=== PATIENT | male | born 1935 | race Caucasian/White ===

== ENCOUNTER 2017-05-28 14:53 | Emergency (ER) | payer MEDICARE, OTHER ==
[2017-05-28 16:36] VITALS: BP 150/63
--- NOTE | 2017-05-28 16:37 | ED ---
Respiratory - HPI Summary HPI Summary: 81 yr old male with the complaint of chest tightness and tightness in his throat. Onset over a day ago. He reports having sneezing and mild cough as well. He has not had SOB, dizziness. No other complaints. The patient denies prior cardiac history of heart attack. - History of Current Complaint Chief Complaint: UCRespiratory Stated Complaint: UPPER RESPIRATORY COMPLAINT Time Seen by Provider: 05/28/17 16:23 - Allergy/Home Medications Allergies/Adverse Reactions: Allergies Allergy/AdvReac Type Severity Reaction Status Date / Time latex Allergy Rash Verified 05/28/17 16:06 Home Medications: Home Medications Aspirin EC Low Dose* [Ecotrin EC Low Dose 81 MG*] 1 tab DAILY 05/28/17 [History Confirmed 05/28/17] Cyanocobalamin TAB* [Vitamin B12 TAB*] 1 tab DAILY 05/28/17 [History Confirmed 05/28/17] Divalproex ER TAB(*) [Depakote ER TAB(*)] 1,000 mg PO DAILY 05/28/17 [History Confirmed 05/28/17] Furosemide TAB* [Lasix TAB*] 40 mg PO DAILY 05/28/17 [History Confirmed 05/28/17 ] Insulin GLARGINE(*) [Lantus(*)] 6 units QPM 05/28/17 [History Confirmed 05/28/17 ] Levothyroxine TAB* [Synthroid TAB*] 112 mcg PO 0800 05/28/17 [History Confirmed 05/28/17] Metformin SUSP (NF)* [Riomet SUSP (NF)*] 1,000 mg BID 05/28/17 [History Confirmed 05/28/17] Potassium Chlor TAB* [Potassium Chlor TAB 20 MEQ*] 20 meq DAILY 05/28/17 [ History Confirmed 05/28/17] Primidone TAB(*) [Mysoline TAB(*)] 250 mg PO TID 05/28/17 [History Confirmed 04/02] Quetiapine Fumarate [Seroquel Xr] 100 - 200 mg PO BEDTIME 05/28/17 [History Confirmed 05/28/17] PMH/Surg Hx/FS Hx/Imm Hx Respiratory History: Reports: Hx Chronic Obstructive Pulmonary Disease (COPD) - Cancer History Hx Chemotherapy: No Hx Radiation Therapy: No Infectious Disease History: Denies: Traveled Outside the [place] in Last 30 Days - Family History Known Family History: Positive: None - Social History Occupation: Retired Lives: With Family Review of Systems Positive: Chest Pain Positive: Cough All Other Systems Reviewed And Are Negative: Yes Physical Exam Triage Information Reviewed: Yes Vital Signs Reviewed: Yes Appearance: Positive: Well-Appearing, No Pain Distress Skin: Positive: Warm, Skin Color Reflects Adequate Perfusion Eyes: Positive: EOMI ENT: Positive: Nasal congestion Neck: Positive: Nontender Respiratory/Lung Sounds: Positive: Clear to Auscultation, Breath Sounds Present Cardiovascular: Positive: RRR. Negative: Murmur Abdomen Description: Positive: Nontender Musculoskeletal: Positive: Strength/ROM Intact Neurological: Positive: Sensory/Motor Intact, Alert, Oriented to Person Place, Time, CN Intact II-III Psychiatric: Positive: Normal - Cathryn Coma Scale Best Eye Response: 4 - Spontaneous Best Motor Response: 6 - Obeys Commands Best Verbal Response: 5 - Oriented Coma Scale Total: 15 Diagnostics - Laboratory Lab Statement: Any lab studies that have been ordered have been reviewed, and results considered in the medical decision making process. - EKG 05/28/2017 Cardiac Rate: NL EKG Rhythm: Sinus Rhythm ST Segment: Normal Ectopy: None Disposition - Course Course Of Treatment: 81 yr old with chest pain/tightness goes into his neck. EKG with RBBB. I advise he go to the ER by ambulance and they refused ambulance. Sign out AMA with chest pain, possible , disability, heart attack, blood clot, sepsis. - Diagnoses Provider Diagnoses: Chest pain, Hypertension Discharge - Discharge Plan Condition: Good Disposition: AGAINST MEDICAL ADVICE Referrals: Ricardo Saenz MD [Primary Care Provider] -
== END 2017-05-28 16:48 | disposition left against medical advice (07) ==
LOC: UCCORT 14:53
DX: R07.9 Chest pain, unspecified (principal); I10 Essential (primary) hypertension; J44.9 Chronic obstructive pulmonary disease, unspecified
CPT/HCPCS: 93005; 99212; G0463

== ENCOUNTER 2017-10-09 13:00 | Emergency (ER) | payer MEDICARE, OTHER ==
[2017-10-09 14:42] VITALS: BP 125/47
--- NOTE | 2017-10-09 14:54 | UC ---
General HPI - HPI Summary HPI Summary: Patient presents accompanied by his daughter. He is complaining of abrasions to both knees. States that he was walking and looking at the [place] at the same time causing him to trip on an uneven sidewalk. States that he fell and landed on both his knees. He did not hit his head. he denies any neck or back pain. He is complaining of abrasions to both knees. He denies any other injuries and offers no other complaints. Daughter at the bedside states that she cleaned the areas with some alcohol and Betadine and applied some Band-Aids. Last tetanus shot is unknown. Occured INSTITUTIONAL CUSTODIAN. Pt did get self up and walked home. - History of Current Complaint Hx Obtained From: Patient, Family/Bed And Breakfast Operator Onset/Duration: Sudden Onset Timing: Constant Pain Intensity: 6 Aggravating: nothing Alleviating: nothing Associated Signs & Symptoms: Negative: Headache, Syncope <Perla Gore - Last Filed: 10/09/17 14:48> <Calos Traore - Last Filed: 10/09/17 20:01> - History of Current Complaint Chief Complaint: UCLowerExtremity Stated Complaint: BILATERAL KNEE COMPLAINT/FALL Time Seen by Provider: 10/09/17 14:47 - Allergy/Home Medications Allergies/Adverse Reactions: Allergies Allergy/AdvReac Type Severity Reaction Status Date / Time latex Allergy Rash Verified 10/09/17 14:24 Home Medications: Home Medications Cholecalciferol TAB* [Vitamin D TAB*] 1,000 unit PO DAILY 10/09/17 [History Confirmed 10/09/17] Flash Glucose Sensor [Freestyle Abril Sensor] 1 each MC 10/09/17 [History] Insulin LISPRO* [HumaLOG*] units SUBCUT BID AC PRN 10/09/17 [History] Levothyroxine TAB* [Synthroid TAB*] 125 mcg PO DAILY 10/09/17 [History Confirmed 10/09/17] Multivitamin [Multivitamins] 1 cap PO 10/09/17 [History] Olean-3 Fatty Acids/Fish Oil [Fish Oil 1,000 mg Capsule] 1 each PO 10/09/17 [ History] metFORMIN* [Glucophage 1000 MG TAB *] 1,000 mg PO BID 10/09/17 [History Confirmed 10/09/17] PMH/Surg Hx/FS Hx/Imm Hx Endocrine History: Diabetes, Thyroid Disease Psychological History: Bipolar Disorder - Surgical History Surgical History: Yes Surgery Procedure, Year, and Place: Cystoscopies. Spinal fusion. 5 hernia repairs w/ mesh. Cataract sx. TONSILLECTOMY - Family History Known Family History: Positive: None - Social History Occupation: Retired Alcohol Use: None Substance Use Type: None Substance Use Comment - Amount & Last Used: unk Smoking Status (MU): Former Smoker When Did the Patient Quit Smoking/Using Tobacco: 1991 - Immunization History Most Recent Tetanus Shot: UNKNOW Hx Tetanus, Diphtheria Vaccination: No - unknown Vaccination Up to Date: Yes <Perla Gore - Last Filed: 10/09/17 14:48> Review of Systems Constitutional: Negative Skin: Other - abrasions to both knees Eyes: Negative ENT: Negative Respiratory: Negative Cardiovascular: Negative Gastrointestinal: Negative Genitourinary: Negative Motor: Negative Neurovascular: Negative Musculoskeletal: Negative Neurological: Negative Psychological: Negative All Other Systems Reviewed And Are Negative: Yes <Perla Gore - Last Filed: 10/09/17 14:48> Physical Exam Triage Information Reviewed: Yes Appearance: Well-Appearing Vital Signs: Initial Vital Signs Temp 98 F 10/09/17 14:31 Pulse 57 10/09/17 14:31 Resp 16 10/09/17 14:31 BP 125/47 10/09/17 14:31 Pulse Ox 99 10/09/17 14:31 Vital Signs Reviewed: Yes Eyes: Positive: Conjunctiva Clear ENT: Positive: Normal ENT inspection Neck: Positive: Supple, Nontender, No Lymphadenopathy Respiratory: Positive: Lungs clear, Normal breath sounds Cardiovascular: Positive: RRR, No Murmur Abdomen Description: Positive: Nontender, No Organomegaly, Soft Bowel Sounds: Positive: Present Musculoskeletal: Positive: Other: - Head, chest, pelvis and both upper extremities are atraumatic. Bilateral lower extremity exam: Hips lower legs ankles and feet are atraumatic. Both anterior knees have abrasions with slight soiling. The areas are slightly swollen and minimally tender with no crepitation or instability both knees have full active range of motion. Both lower extremities have gross sensory vascular and motor function. Neurological: Positive: Alert Psychological: Positive: Normal Response To Family, Age Appropriate Behavior Skin Exam: Normal <Perla Gore Last Filed: 10/09/17 14:48> Vital Signs: Initial Vital Signs Temp 98 F 10/09/17 14:31 Pulse 57 10/09/17 14:31 Resp 16 10/09/17 14:31 BP 125/47 10/09/17 14:31 Pulse Ox 99 10/09/17 14:31 <Calos Traore - Last Filed: 10/09/17 20:01> Diagnostics - Radiology No standard instances Xray Interpretation: No Acute Changes Radiology Interpretation Completed By: Radiologist - both knees. no fx. OA(see report) <Perla Gore - Last Filed: 10/09/17 14:48> Course/Dx - Course Course Of Treatment: no fx's - Differential Dx - Multi-Symptom Provider Diagnoses: Abrasions to both knees <Perla Gore - Last Filed: 10/09/17 14:48> Discharge - Sign-Out/Discharge Documenting (check all that apply): Discharge/Admit/Transfer - Billing Disposition and Condition Condition: STABLE Disposition: Home <Perla Gore - Last Filed: 10/09/17 14:48> - Billing Disposition and Condition Condition: STABLE Disposition: Home <Calos Traore - Last Filed: 10/09/17 20:01> - Discharge Plan Condition: Stable Disposition: HOME Patient Education Materials: Abrasion (ED) Referrals: Ricardo Saenz MD [Primary Care Provider] - 7 Days Additional Instructions: Per institutional requirements, I have reviewed the chart, however, I was not consulted specifically or made aware of this patient by the above midlevel provider. I did not personally evaluate, interact with , or disposition this patient.
[2017-10-09] MEDS ORDERED: Tetan/Diph/Pertus SYR(Tdap)* 0.5 ML SYR(BOOSTRIX) use SYR IM ONE (15:02)
--- NOTE | 2017-10-09 15:48 | RAD ---
INDICATION: Bilateral knee pain COMPARISON: None TECHNIQUE: AP, lateral, tunnel, and sunrise views were obtained. FINDINGS: There are no acute bony abnormalities about either knee. Bony mineralization is normal for age. There is mild, bilateral, patellofemoral osteoarthritis. The medial lateral joint spaces are preserved. There are vascular calcifications bilaterally. There are no significant joint effusions. IMPRESSION: MINOR AGE-RELATED OSTEOARTHRITIC CHANGE. NO ACUTE FINDINGS.
== END 2017-10-09 16:12 | disposition home or self-care (01) ==
LOC: UCCORT 13:00
DX: S80.212A Abrasion, left knee, initial encounter (principal); S80.211A Abrasion, right knee, initial encounter; W19.XXXA Unspecified fall, initial encounter; Y93.01 Activity, walking, marching and hiking; Y92.9 Unspecified place or not applicable; E11.9 Type 2 diabetes mellitus without complications; Z79.4 Long term (current) use of insulin; Z79.84 Long term (current) use of oral hypoglycemic drugs; E07.9 Disorder of thyroid, unspecified; Z87.891 Personal history of nicotine dependence
CPT/HCPCS: 90471; 90715; 99203; G0463

== ENCOUNTER 2017-12-03 09:46 | Emergency (ER) | payer MEDICARE, OTHER ==
[2017-12-03 10:09] VITALS: BP 134/46
--- NOTE | 2017-12-03 10:34 | UC ---
Upper Extremity HPI - HPI Summary HPI Summary: Patient states he had a watch with a leather wristband that was very tight on the his left wrist and he noticed swelling on his hand on 11-30-17. He denies chills or fever. States he had a fall in October 09 and landed on knees and left hand but had no tenderness there ever since. - History of Current Complaint Chief Complaint: UCSkin Stated Complaint: LEFT HAND SWELLING Time Seen by Provider: 12/03/17 10:05 Hx Obtained From: Patient, Family/Loan Reviewer ?: No Onset/Duration: Sudden Onset, Lasting Days Severity Initially: Mild Severity Currently: Mild Pain Intensity: 0 Character: Sharp Aggravating Factor(s): Movement Alleviating Factor(s): Nothing Associated Signs And Symptoms: Positive: Negative - Risk Factors DVT Risk Factors: Negative Septic Arthritis Risk Factor: Extremes of Age - Allergies/Home Medications Allergies/Adverse Reactions: Allergies Allergy/AdvReac Type Severity Reaction Status Date / Time latex Allergy Rash Verified 12/03/17 10:09 PMH/Surg Hx/FS Hx/Imm Hx Previously Healthy: Yes Endocrine History: Diabetes, Hypothyroidism Cardiovascular History: Hypertension Psychological History: Bipolar Disorder - Surgical History Surgical History: Yes Surgery Procedure, Year, and Place: Cystoscopies. Spinal fusion. 5 hernia repairs w/ mesh. Cataract sx. TONSILLECTOMY - Family History Known Family History: Positive: None - Social History Alcohol Use: None Substance Use Type: None Substance Use Comment - Amount & Last Used: unk Smoking Status (MU): Former Smoker When Did the Patient Quit Smoking/Using Tobacco: 1991 - Immunization History Most Recent Tetanus Shot: UTD Hx Tetanus, Diphtheria Vaccination: No - unknown Vaccination Up to Date: Yes Review of Systems Constitutional: Negative Skin: Other - soft tissue swelling Eyes: Negative ENT: Negative Respiratory: Negative Cardiovascular: Negative Gastrointestinal: Negative Genitourinary: Negative Motor: Negative Neurovascular: Negative Musculoskeletal: Edema All Other Systems Reviewed And Are Negative: Yes Physical Exam Triage Information Reviewed: Yes Appearance: Well-Appearing, No Pain Distress, Well-Nourished Vital Signs: Initial Vital Signs Temp 97.4 F 12/03/17 09:59 Pulse 52 12/03/17 09:59 Resp 16 12/03/17 09:59 BP 134/46 12/03/17 09:59 Pulse Ox 99 12/03/17 09:59 Vital Signs Reviewed: Yes Eyes: Positive: Conjunctiva Clear ENT: Positive: Hearing grossly normal, Pharynx normal, Uvula midline Neck: Positive: Supple, Nontender, No Lymphadenopathy Respiratory: Positive: Chest non-tender, Lungs clear, Normal breath sounds, No respiratory distress Cardiovascular: Positive: RRR, No Murmur, Pulses Normal, Brisk Capillary Refill Abdomen Description: Positive: Nontender Musculoskeletal: Positive: Strength Intact, ROM Intact, Edema @ - dorsal left hand, non pitting. Ulnar and radial pulses intact, capillary refill brisk. Tender along 5th metacarpal and MP joint. No bruising, no rash Neurological: Positive: Alert, Muscle Tone Normal Psychological: Positive: Normal Response To Family Upper Extremity Course/Dx - Course Course Of Treatment: xray shows DJD, no evidence of fracture or dislocation. SCOTTY compressive bandage applied, sling to be used to elevate hand. - Differential Dx/Diagnosis Provider Diagnoses: Hand osteoarthritis Discharge - Sign-Out/Discharge Documenting (check all that apply): Patient Departure All imaging exams completed and their final reports reviewed: Yes - Discharge Plan Condition: Stable Disposition: HOME Patient Education Materials: Osteoarthritis (ED) Referrals: Ricardo Saenz MD [Primary Care Provider] - - Billing Disposition and Condition Condition: STABLE Disposition: Home
--- NOTE | 2017-12-03 10:49 | RAD ---
Indication: Left hand swelling. 4 views of the left hand demonstrates degenerative changes of the radiocarpal joint as well as the trapezium first metacarpal joint. No fracture is noted. IMPRESSION: Degenerative changes of the radiocarpal joint and first carpal metacarpal joint.
== END 2017-12-03 11:16 | disposition home or self-care (01) ==
LOC: UCCORT 09:46
DX: I10 Essential (primary) hypertension (principal); Z87.891 Personal history of nicotine dependence; E11.9 Type 2 diabetes mellitus without complications; M19.042 Primary osteoarthritis, left hand
CPT/HCPCS: 99213; G0463

== ENCOUNTER 2018-02-17 17:12 | Emergency (ER) | payer MEDICARE, OTHER ==
[2018-02-17 18:34] VITALS: BP 176/54
--- NOTE | 2018-02-17 20:18 | ED ---
Complex/Multi-Sys Presentation - HPI Summary HPI Summary: pt presents for evaluation after he fell. he was taking his daily walk. his daughter is here with the patient. he falls on occasion especially if there is uneven ground as there was today as per pt and daughter. pt denies any loc. he complained of mild right elbow pain and an abrasion to his right knee. he denies bleeding from his nose. this happened around 2pm. he presented several hours later. he states that his elbow started hurting. - History Of Current Complaint Chief Complaint: UCHeadInjury Hx Obtained From: Patient, Family/Cnc Operator Onset/Duration: Sudden Onset Severity Currently: Mild Severity Initially: Mild Associated Signs And Symptoms: Positive: Edema - legs chronic. Negative: Decreased Responsiveness, Confusion, Agitation, Dizziness, Weakness, Cough, Chest Pain, Nausea, Vomiting, Diarrhea, Back Pain, Fever - Allergies/Home Medications Allergies/Adverse Reactions: Allergies Allergy/AdvReac Type Severity Reaction Status Date / Time latex Allergy Rash Verified 02/17/18 18:35 Home Medications: Home Medications Azelastine 0.15% NASAL(NF) [Astepro 0.15% NASAL (NF)] 1 spray NASAL BEDTIME 08/01 [History Confirmed 02/17/18] Iron 65 Mg 1 tab DAILY 02/17/18 [History] Polyethylene Glycol 3350* [Miralax*] 17 gm PO DAILY 02/17/18 [History Confirmed 02/17/18] PMH/Surg Hx/FS Hx/Imm Hx Previously Healthy: Yes Endocrine/Hematology History: Reports: Hx Diabetes - Type 1, Hx Thyroid Disease - Hypo Respiratory History: Reports: Hx Chronic Obstructive Pulmonary Disease (COPD) - Cancer History Cancer Type, 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 Spinal fusion. 5 hernia repairs w/ mesh. Cataract sx. TONSILLECTOMY Infectious Disease History: No Infectious Disease History: Denies: Traveled Outside the [place] in Last 30 Days - Family History Known Family History: Positive: None - Social History Alcohol Use: None Substance Use Type: Reports: None Substance Use Comment - Amount & Last Used: unk Smoking Status (MU): Former Smoker Review of Systems Constitutional: Negative Eyes: Negative Positive: Other - nose pain after fall Respiratory: Negative Gastrointestinal: Negative Genitourinary: Negative Positive: Other - right elbow pain Positive: Other - abrasion Negative: Headache, Syncope, Slurred Speech Psychological: Normal All Other Systems Reviewed And Are Negative: No Physical Exam Triage Information Reviewed: Yes Vital Signs On Initial Exam: Initial Vitals Temp Pulse Resp BP Pulse Ox 97.6 F 51 18 176/54 100 02/17/18 18:27 1118 18:27 02/17/18 18:27 02/17/18 18:27 02/17/18 18:27 Vital Signs Reviewed: Yes Appearance: Positive: Well-Appearing, No Pain Distress, Well-Nourished Skin: Positive: Warm, Dry, Other - abrsion to bridge of nose and to right knee. right knee has a bandaid on it. Head/Face: Positive: Other - abrasion to bridge of nose Eyes: Positive: Normal ENT: Positive: Hearing grossly normal, Pharynx normal, Other - no midface tenderness or deformities. nl bite Neck: Positive: Supple, Nontender Respiratory/Lung Sounds: Positive: Clear to Auscultation, Breath Sounds Present Cardiovascular: Positive: Normal, RRR Abdomen Description: Positive: Nontender, Soft Bowel Sounds: Positive: Present Musculoskeletal: Positive: Normal, Other - full rom of right elbow, slow gait ( daughter states baseline) Neurological: Positive: CN Intact II-III, Other - no facial asymetry. full rom of all extremities and joints Psychiatric: Positive: Other - flat affect AVPU Assessment: Alert Diagnostics - Vital Signs Vital Signs Temp Pulse Resp BP Pulse Ox 02/17/18 18:27 97.6 F 51 18 176/54 100 - Laboratory Lab Statement: Any lab studies that have been ordered have been reviewed, and results considered in the medical decision making process. Complex Multi-Symp Course/Dx Course Of Treatment: xray of right elbow shows a posterior fat fat sign. I discussed with pt and daughter the fact that his exam is not consistent with a fracture. I informed them that this may be from a previous injury. however, I did not have any previous xrays for comparison. I discussed placing a splint and sling. pt and daughter agreed. I encouraged them to f/u pcp and ortho this week. I told the daughter that orthopedic surgery may determine that this is not a new finding and that he can have the splint removed and resume all normal activity. they understood the importance of f/u with ortho. Regarding his facial trauma, I do not see any clinical evidence of fracture. he had no loc. He does not appear concussed. We do not have CT capabilities tonight. I discussed this with the daughter. I do not think that pt requires a CT head, however, I did discuss with the daughter the fact that if he has any new neurologic symptoms, persistent headaches or has difficulty ambulating, he needs to go to an emergency dept for re-evaluation. - Diagnoses Provider Diagnoses: Contusion, Elbow pain, right Discharge - Sign-Out/Discharge Documenting (check all that apply): Patient Departure All imaging exams completed and their final reports reviewed: Yes - Discharge Plan Condition: Stable Disposition: HOME Patient Education Materials: Elbow Sprain (ED), Abrasion (ED) Referrals: Ricardo Saenz MD [Primary Care Provider] - Additional Instructions: Please follow up with your primary care physician and your orthopedic surgeon. return if worse or any new symptoms. Take tyelnol for pain. Keep the splint dry. wear the sling as instructed. your xray showed a "posterior fat pad sign " which is concerning for a fracture of your elbow. If you start having a headache or are having difficulty walking or any new symptoms, please go to the nearest emergency dept for evaluation. - Billing Disposition and Condition Condition: STABLE Disposition: Home
== END 2018-02-17 20:30 | disposition home or self-care (01) ==
LOC: UCCORT 17:12
DX: S50.01XA Contusion of right elbow, initial encounter (principal); M25.521 Pain in right elbow; E10.9 Type 1 diabetes mellitus without complications; J44.9 Chronic obstructive pulmonary disease, unspecified; Z91.040 Latex allergy status; Z87.891 Personal history of nicotine dependence
CPT/HCPCS: 99211; G0463

== ENCOUNTER 2018-06-09 13:24 | Emergency (ER) | payer MEDICARE, OTHER ==
[2018-06-09 14:16] VITALS: BP 115/41
--- NOTE | 2018-06-09 15:00 | UC ---
Skin Complaint HPI - HPI Summary HPI Summary: Has had increased LE edema x 3+ weeks L>R with pruritic erythematous rash on Left initially, now with right. Some tingling. No fevers or chills. Has been eating salted peanuts. - History of Current Complaint Chief Complaint: UCSkin Time Seen by Provider: 06/09/18 14:34 Stated Complaint: LEG CONCERN (EDEMA) Hx Obtained From: Patient Onset/Duration: Gradual Onset, Lasting Weeks - 3, Still Present Timing: Constant Onset Severity: Moderate Current Severity: Severe Pain Intensity: 7 Location: Discrete - Bilateral lower legs Character: Swelling, Pruritus, Redness Aggravating Factor(s): Touch Alleviating Factor(s): Nothing Associated Signs & Symptoms: Positive: Rash. Negative: Numbness, Diaphoresis, Difficulty Breathing, Fever, Chills, Chest Pain, Drainage, Bruising, Tenderness , Red Streaks Related History: Use of Diuretics - Allergy/Home Medications Allergies/Adverse Reactions: Allergies Allergy/AdvReac Type Severity Reaction Status Date / Time latex Allergy Rash Verified 06/09/18 14:01 Home Medications: Home Medications Furosemide TAB* [Lasix TAB*] 20 mg PO DAILY 06/09/18 [History Confirmed 06/09/18 ] Hydrocortisone 0.5% CM(NF) [Hydrocortisone 0.5% CREAM(NF)] 1 applic .SEE ORDER DAILY 06/09/18 [History Confirmed 06/09/18] Loratadine/Pseudoephedrine [Claritin-D 24 Hour Tablet] 1 tab PO DAILY 06/09/18 [ History Confirmed 06/09/18] Potassium Chlor TAB* [Klor Con ER TAB 10 MEQ*] 10 meq PO DAILY 06/09/18 [ History Confirmed 06/09/18] PMH/Surg Hx/FS Hx/Imm Hx Endocrine History: Diabetes, Hypothyroidism, Dyslipidemia Cardiovascular History: Hypertension Psychological History: Bipolar Disorder - Surgical History Surgical History: Yes Surgery Procedure, Year, and Place: Cystoscopies. Spinal fusion. 5 hernia repairs w/ mesh. Cataract sx. TONSILLECTOMY. dental - Family History Known Family History: Positive: Diabetes - Social History Occupation: Retired Lives: Alone Alcohol Use: None Substance Use Type: None Substance Use Comment - Amount & Last Used: unk Smoking Status (MU): Former Smoker When Did the Patient Quit Smoking/Using Tobacco: 1991 - Immunization History Most Recent Tetanus Shot: UTD Hx Tetanus, Diphtheria Vaccination: No - unknown Vaccination Up to Date: Yes Review of Systems All Other Systems Reviewed And Are Negative: Yes Skin: Positive: Rash Musculoskeletal: Positive: Edema Physical Exam Triage Information Reviewed: Yes Appearance: Well-Appearing, No Pain Distress, Well-Nourished Vital Signs: Initial Vital Signs Temp 98.5 F 06/09/18 14:06 Pulse 85 06/09/18 14:06 Resp 18 06/09/18 14:06 BP 115/41 06/09/18 14:06 Pulse Ox 98 06/09/18 14:06 Vital Signs Reviewed: Yes Eyes: Positive: Conjunctiva Inflamed Neck exam: Normal Respiratory Exam: Normal Cardiovascular Exam: Normal Musculoskeletal: Positive: Edema @ - 3-4+ on the left LE 3+ right LE Neurological Exam: Normal Psychological Exam: Normal Skin: Positive: Rashes - erythematous papular rash left LE and much less right LE Images Front/Back of Body, Lg (Pierce): 1 - Rash anterolateral lower valladares 2 - line of papules Course/Dx - Differential Diagnoses - Skin Complaint Differential Diagnoses: Cellulitis, Drug Rash, Impetigo, Varicella Zoster - Diagnoses Provider Diagnosis: Venous stasis dermatitis of both lower extremities Discharge - Sign-Out/Discharge Documenting (check all that apply): Patient Departure All imaging exams completed and their final reports reviewed: No Studies - Discharge Plan Condition: Stable Disposition: HOME Prescriptions: Betamethasone Dip 0.05% ON(NF) [Betamethasone Dipr 0.05% OINT(NF)] 1 applic TOPICAL BID 30 Days #45 gm Patient Education Materials: Stasis Dermatitis (ED) Referrals: Ricardo Saenz MD [Primary Care Provider] - Additional Instructions: 1. Take an extra 40mg lasix today. 2. Use the SCOTTY wrap to help get fluid out. 3. No salted foods. Goal < 2000mg a day. 4. Use vaseline on the split fingers every night before bed and wear cotton gloves to bed. Use the vaseline after using any chemicals or if your hands are cold/ chapped. - Billing Disposition and Condition Condition: STABLE Disposition: Home
== END 2018-06-09 15:26 | disposition home or self-care (01) ==
LOC: UCCORT 13:24
DX: I87.2 Venous insufficiency (chronic) (peripheral) (principal); E11.9 Type 2 diabetes mellitus without complications; I10 Essential (primary) hypertension; Z87.891 Personal history of nicotine dependence; Z91.040 Latex allergy status
CPT/HCPCS: 99212; G0463